=== PATIENT | male | born 1990 | race Hispanic/Latino ===

== ENCOUNTER → 2020-03-02 | Outpatient (CLI) | payer OTHER | LOC: RAD 14:51 | PROVIDERS: ATTEND Family Medicine | DX: S22.43XA Multiple fractures of ribs, bilateral, initial encounter for closed fracture (principal); S42.017A Nondisplaced fracture of sternal end of right clavicle, initial encounter for closed fracture | CPT/HCPCS: 71046; 71111 ==

== ENCOUNTER → 2020-03-15 | Outpatient (CLI) | payer OTHER | LOC: CT 14:11 | PROVIDERS: ATTEND Specialist | DX: S42.011A Anterior displaced fracture of sternal end of right clavicle, initial encounter for closed fracture (principal) | CPT/HCPCS: 71250 ==